=== PATIENT | male | born 1945 | race Caucasian/White ===

== ENCOUNTER 2017-11-18 07:45 | Emergency (ER) | payer MEDICARE ==
[~2017-11-18] VITALS: Ht 172.7 cm; Wt 106.8 kg
[2017-11-18] MEDS ORDERED: ACET-3068 PO (09:28)
[2017-11-18 09:37] VITALS: BP 124/72
== END 2017-11-18 09:40 | disposition home or self-care (01) ==
LOC: ER 07:46
DX: S89.91XA Unspecified injury of right lower leg, initial encounter (principal); M70.51 Other bursitis of knee, right knee; I10 Essential (primary) hypertension; E11.9 Type 2 diabetes mellitus without complications; Z98.890 Other specified postprocedural states; W19.XXXA Unspecified fall, initial encounter; Y93.89 Activity, other specified; Y92.89 Other specified places as the place of occurrence of the external cause; Y99.9 Unspecified external cause status
CPT/HCPCS: 73564; 99284; A6449

== ENCOUNTER 2018-05-23 04:34 | Inpatient (IN) | payer MEDICARE | END 2018-05-28 17:05 | disposition home or self-care (01) | LOC: ER 04:34 → ED HOLD 09:33 → PCU 3S 17:36 | DX: K52.9 Noninfective gastroenteritis and colitis, unspecified (principal); N17.9 Acute kidney failure, unspecified; N40.0 Benign prostatic hyperplasia without lower urinary tract symptoms; E11.42 Type 2 diabetes mellitus with diabetic polyneuropathy; N20.0 Calculus of kidney ==

== ENCOUNTER 2021-09-23 09:07 | Inpatient (IN) | payer MEDICARE ==
[~2021-09-23] VITALS: Ht 172.7 cm; Wt 102.4 kg
[~2021-09-23 09:07] MED LIST: ASCO500T20 PO; ATOR40TA PO; CHOL50004 PO; COL100C PO; INSU100C10 SQ; INSU100I31; LOP25T PO; LOSA100T57 PO; LYR75C PO; MAGN400O6 PO; NOR5T PO; PANT40TA54 PO; hyDRALAzine tablet PO
[2021-09-23 10:47] LABS: BASOPHILS # (AUTO) 0.1 X10'3 (0-0.2); BASOPHILS % (AUTO) 0.6 % (0-1); EOSINOPHILS % (AUTO) 0 % (0-6); HEMATOCRIT 49.4 % (42.0-52.0); HEMOGLOBIN 17.1 g/dl (14.0-17.9); LYMPHOCYTES # (AUTO) 0.6 X10'3 (1.1-4.8); LYMPHOCYTES % (AUTO) 3.8 % (21-51); MEAN CORPUSCULAR HEMOGLOBIN 31.6 PG (27.0-31.0); MEAN CORPUSCULAR HGB CONC 34.6 g/dL (33.0-36.5); MEAN CORPUSCULAR VOLUME 91.5 FL (78-98); MEAN PLATELET VOLUME 7.6 FL (7.4-10.4); MONOCYTES # (AUTO) 0.7 X10'3 (0-0.9); MONOCYTES % (AUTO) 3.9 % (2-12); NEUTROPHILS # (AUTO) 15.5 X10'3 (1.8-7.7); NEUTROPHILS % (AUTO) 91.7 % (42-75); PLATELET COUNT 257 X10'3 (140-440); WHITE BLOOD COUNT 16.9 X10'3 (4.5-11.0)
[2021-09-23 11:00] LABS: ALANINE AMINOTRANSFERASE 15 U/L (12-78); ALBUMIN 3.8 G/DL (3.4-5.0); ALKALINE PHOSPHATASE 165 IU/L (46-116); ANION GAP 13 (8-16); ASPARTATE AMINO TRANSFERASE 11 U/L (10-37); BILIRUBIN,TOTAL 1.6 MG/DL (0.1-1.0); BLOOD UREA NITROGEN 11 MG/DL (7-18); BUN/CREATININE RATIO 8.3 (5.4-32.0); CALCIUM 9.9 MG/DL (8.5-10.1); CHLORIDE 101 MMOL/L (99-107); CREATININE 1.32 MG/DL (0.60-1.10); GLUCOSE 331 MG/DL (70-104); POTASSIUM 4.5 MMOL/L (3.5-5.1); SODIUM 139 MMOL/L (135-145); TOTAL PROTEIN 7.7 G/DL (6.4-8.2); eGFR 53 ML/MIN
[2021-09-23] MEDS ORDERED: iohexol 350MG/ML 100ml bottle IV ONE (16:01)
[2021-09-23] MEDS ORDERED: acetaminophen 325mg tablet PO PRN ×2 (16:15)
[2021-09-23] MEDS ORDERED: morphine 2 MG/ML inj. syringe IV PRN (16:15)
[2021-09-23] MEDS ORDERED: regadenoson 0.4mg/5ml syringe IV PRN (16:15)
[2021-09-23] MEDS ORDERED: magnesium hydroxide 30ml (MOM) UD suspension PO PRN (16:15)
[2021-09-23] MEDS ORDERED: metoprolol tartrate 1mg/ml inj IV PRN (16:15)
[2021-09-23] MEDS ORDERED: POTASSIUM BICARB 20meq eff tab 20 MEQ TABLET.EFF PO PRN (16:15)
[2021-09-23] MEDS ORDERED: potassium CL 10mEq/100ml bag 100 ML IV PRN (16:15)
[2021-09-23] MEDS ORDERED: dextrose 50%-water 50ml dispensing syringe IV PRN ×2 (16:15)
[2021-09-23] MEDS ORDERED: aminophylline 250mg/10ml inj. IV PRN (16:15)
[2021-09-23] MEDS ORDERED: magnesium 2GM in 50ml NS 50 ML IV PRN (16:15)
[2021-09-23] MEDS ORDERED: glucagon, human recombinant 1mg kit SUBCUT PRN (16:15)
[2021-09-23] MEDS ORDERED: magnesium 4gm in 100ml NS 100 ML IV PRN (16:15)
[2021-09-23] MEDS ORDERED: DEXTROSE 15 GM of carb/4 tabs (each vial/BOTTLE has 4 tablets) PO PRN ×2 (16:15)
[2021-09-23] MEDS ORDERED: MESSAGE TO PHARMACY PO ONE (16:15)
[2021-09-23] MEDS ORDERED: mag hydrox/Alum hydrox/simeth 30ml oral suspension PO PRN (16:15)
[2021-09-23] MEDS ORDERED: magnesium Cl slow-release 64mg tablet PO PRN (16:15)
[2021-09-23] MEDS ORDERED: nitroGLYCERIN 0.4mg SUBLingual tab SL PRN (16:15)
[2021-09-23 16:36] LABS: MAGNESIUM 2.1 MG/DL (1.5-2.4)
[2021-09-23 16:41] LABS: HEMOGLOBIN A1C 9.7 % (4.5-6.2)
[2021-09-23 17:27] LABS: CLARITY,URINE CLEAR (Clear); COLOR,URINE YELLOW (Yellow); GLUCOSE, URINE >=1000 mg/dl (Neg); KETONES,URINE 15 mg/dl (Neg); LEUKOCYTE ESTERASE ,URINE NEGATIVE (Neg); NITRITES, URINE NEGATIVE (Neg); OCCULT BLOOD,URINE TRACE-INTACT (Neg); PH,URINE 5.5 (4.8-8.0); PROTEIN,URINE TRACE mg/dl (Neg); UROBILINOGEN,URINE 0.2 E.U/dL (0.2-1.0)
[2021-09-23 17:34] LABS: UA COLLECTION TYPE CLN CATCH MIDSTREAM
[2021-09-23 17:36] LABS: BACTERIA,URINE NONE SEEN /HPF (Neg); MUCUS STRANDS NONE SEEN /LPF (Neg); RBC,URINE NONE SEEN /HPF (0-2); SQUAMOUS EPITHELIAL CELL,UR FEW /LPF (FEW); WBC,URINE NONE SEEN /HPF (0-4)
[2021-09-23] MEDS: furosemide 10 MG/1 ML 10ml inj IV SCH (19:49)
[2021-09-23] MEDS: K and/or MAG REPLACEMENT MC SCH (20:00)
[2021-09-23] MEDS: docusate sod 100mg capsule PO SCH (20:59)
[2021-09-23] MEDS: insulin glargine (Lantus) pen - multi-dose SQ SCH (21:04)
[2021-09-23] MEDS: insulin Lispro (HumaLOG) vial - multi-dose SQ SCH (21:05)
[2021-09-23 23:50] VITALS: BP 137/67
[2021-09-24] VITALS (15 sets, daily range): BP systolic 118–165; BP diastolic 45–83
[2021-09-24] MEDS: HYDROcodone/acetaminophen 5mg/325mg tablet PO PRN (04:16)
--- NOTE | 2021-09-24 06:10 | NUR ---
pt sat on a chair all through half of the shift.Said his chest pain worsen when he is in lying position.
[2021-09-24 07:21] LABS: BASOPHILS # (AUTO) 0.1 X10'3 (0-0.2); BASOPHILS % (AUTO) 0.3 % (0-1); EOSINOPHILS % (AUTO) 0 % (0-6); HEMATOCRIT 46.6 % (42.0-52.0); HEMOGLOBIN 16.2 g/dl (14.0-17.9); LYMPHOCYTES # (AUTO) 0.7 X10'3 (1.1-4.8); LYMPHOCYTES % (AUTO) 4.1 % (21-51); MEAN CORPUSCULAR HEMOGLOBIN 31.6 PG (27.0-31.0); MEAN CORPUSCULAR HGB CONC 34.7 g/dL (33.0-36.5); MEAN PLATELET VOLUME 7.7 FL (7.4-10.4); MONOCYTES # (AUTO) 1.3 X10'3 (0-0.9); MONOCYTES % (AUTO) 7.4 % (2-12); NEUTROPHILS # (AUTO) 15.6 X10'3 (1.8-7.7); NEUTROPHILS % (AUTO) 88.2 % (42-75); PLATELET COUNT 254 X10'3 (140-440); RED BLOOD COUNT 5.12 X10'6 (4.70-6.10); RED CELL DISTRIBUTION WIDTH 12.7 % (11.5-14.5); WHITE BLOOD COUNT 17.7 X10'3 (4.5-11.0)
[2021-09-24 07:31] LABS: ALANINE AMINOTRANSFERASE 11 U/L (12-78); ALBUMIN 3.3 G/DL (3.4-5.0); ALBUMIN/GLOBULIN RATIO 0.8 (1.1-1.5); ALKALINE PHOSPHATASE 127 IU/L (46-116); ANION GAP 15 (8-16); ASPARTATE AMINO TRANSFERASE 10 U/L (10-37); BILIRUBIN,TOTAL 2.2 MG/DL (0.1-1.0); BLOOD UREA NITROGEN 19 MG/DL (7-18); BUN/CREATININE RATIO 13.5 (5.4-32.0); CALCIUM 9.3 MG/DL (8.5-10.1); CHLORIDE 102 MMOL/L (99-107); CHOL/HDL RATIO 2.4 (0.00-4.99); CHOLESTEROL 136 MG/DL (0-200); CREATININE 1.41 MG/DL (0.60-1.10); GLUCOSE 299 MG/DL (70-104); HDL CHOLESTEROL 56 MG/DL (35-60); LDL CHOLESTEROL 54 MG/DL (50-100); MAGNESIUM 2.4 MG/DL (1.5-2.4); POTASSIUM 3.5 MMOL/L (3.5-5.1); SODIUM 139 MMOL/L (135-145); TOTAL CARBON DIOXIDE 21.7 MMOL/L (24-32); TOTAL PROTEIN 7.2 G/DL (6.4-8.2); TRIGLYCERIDES 164 MG/DL (20-135); eGFR 49 ML/MIN
[2021-09-24] MEDS: docusate sod 100mg capsule PO SCH ×2 (08:00→20:31)
[2021-09-24] MEDS: furosemide 10 MG/1 ML 10ml inj IV SCH (08:10)
[2021-09-24] MEDS: enoxaparin 40mg/0.4ml syringe SUBCUT SCH (08:11)
[2021-09-24] MEDS: K and/or MAG REPLACEMENT MC SCH ×2 (08:26→20:00)
[2021-09-24] MEDS ORDERED: cefTRIAXone 1g/NS 100ml IVPB 100 ML IV SCH (08:45)
[2021-09-24] MEDS: insulin Lispro (HumaLOG) vial - multi-dose SQ SCH ×3 (08:50→22:36)
--- NOTE | 2021-09-24 10:10 | NUR ---
Diabetes consult: Noted pt w/ hx of DM A1c 9.7, pt currently out for stress test per RN. Will attempt DM ed again at later time Addendum: 09/24/21 at [address] Amended: Links added.
[2021-09-24] MEDS ORDERED: aminophylline 500mg/20ml vial ONE (10:43)
--- NOTE | 2021-09-24 14:36 | NUR ---
PAGER ID: [phone] MESSAGE: GERMAIN [email or web address], THE [facility]AMA[facility] REPORT IS AVAILABLE ON 3014B, THX.
[2021-09-24] MEDS: piperacillin/tazo 3.375gm/50ml 50 ML IV SCH (16:07)
[2021-09-24] MEDS ORDERED: SINCALIDE IV ONE (19:30)
[2021-09-24] MEDS ORDERED: NORMAL SALINE IV ONE (19:30)
[2021-09-24] MEDS: insulin glargine (Lantus) pen - multi-dose SQ SCH (22:38)
[2021-09-25 02:00] VITALS: BP 132/65
[2021-09-25] MEDS: piperacillin/tazo 3.375gm/50ml 50 ML IV SCH ×3 (03:00→15:49)
[2021-09-25 06:00] VITALS: BP 157/82
--- NOTE | 2021-09-25 06:39 | NUR ---
Patient in room PCU 3014. I have received report from TOBIAS Rivera and had the opportunity to ask questions and assume patient care.
[2021-09-25 06:42] LABS: BASOPHILS % (AUTO) 0.3 % (0-1); EOSINOPHILS % (AUTO) 0.1 % (0-6); HEMATOCRIT 43.6 % (42.0-52.0); HEMOGLOBIN 15.1 g/dl (14.0-17.9); LYMPHOCYTES # (AUTO) 0.7 X10'3 (1.1-4.8); LYMPHOCYTES % (AUTO) 5.1 % (21-51); MEAN CORPUSCULAR HEMOGLOBIN 31.8 PG (27.0-31.0); MEAN CORPUSCULAR HGB CONC 34.7 g/dL (33.0-36.5); MEAN CORPUSCULAR VOLUME 91.7 FL (78-98); MEAN PLATELET VOLUME 7.8 FL (7.4-10.4); MONOCYTES # (AUTO) 0.8 X10'3 (0-0.9); NEUTROPHILS % (AUTO) 88.5 % (42-75); PLATELET COUNT 223 X10'3 (140-440); RED BLOOD COUNT 4.76 X10'6 (4.70-6.10); RED CELL DISTRIBUTION WIDTH 12.8 % (11.5-14.5); WHITE BLOOD COUNT 13.6 X10'3 (4.5-11.0)
[2021-09-25 07:06] LABS: ALANINE AMINOTRANSFERASE 120 U/L (12-78); ALBUMIN 2.6 G/DL (3.4-5.0); ALBUMIN/GLOBULIN RATIO 0.7 (1.1-1.5); ALKALINE PHOSPHATASE 272 IU/L (46-116); ANION GAP 16 (8-16); ASPARTATE AMINO TRANSFERASE 429 U/L (10-37); BILIRUBIN,TOTAL 3.6 MG/DL (0.1-1.0); BLOOD UREA NITROGEN 29 MG/DL (7-18); BUN/CREATININE RATIO 18.2 (5.4-32.0); CALCIUM 8.9 MG/DL (8.5-10.1); CHLORIDE 99 MMOL/L (99-107); CREATININE 1.59 MG/DL (0.60-1.10); GLUCOSE 223 MG/DL (70-104); MAGNESIUM 2.2 MG/DL (1.5-2.4); SODIUM 135 MMOL/L (135-145); TOTAL PROTEIN 6.4 G/DL (6.4-8.2); eGFR 42 ML/MIN
[2021-09-25 07:24] LABS: POTASSIUM 2.9 MMOL/L (3.5-5.1)
[2021-09-25] MEDS: K and/or MAG REPLACEMENT MC SCH ×2 (08:00→20:00)
[2021-09-25] MEDS: furosemide 10 MG/1 ML 10ml inj IV SCH (08:28)
[2021-09-25] MEDS: enoxaparin 40mg/0.4ml syringe SUBCUT SCH (08:29)
[2021-09-25] MEDS: docusate sod 100mg capsule PO SCH ×2 (08:29→20:00)
[2021-09-25] MEDS: insulin Lispro (HumaLOG) vial - multi-dose SQ SCH ×2 (08:39→14:01)
[2021-09-25] MEDS ORDERED: POTASSIUM BICARB 20meq eff tab 20 MEQ TABLET.EFF PO PRN ×2 (09:20)
[2021-09-25] MEDS ORDERED: potassium CL 10mEq/100ml bag 100 ML IV PRN (09:20)
[2021-09-25] MEDS ORDERED: magnesium 4gm in 100ml NS 100 ML IV PRN (09:20)
[2021-09-25] MEDS ORDERED: magnesium Cl slow-release 64mg tablet PO PRN (09:20)
[2021-09-25] MEDS ORDERED: magnesium 2GM in 50ml NS 50 ML IV PRN (09:20)
[2021-09-25] MEDS: POTASSIUM BICARB 20meq eff tab 20 MEQ TABLET.EFF PO PRN ×3 (10:52→23:09)
[2021-09-25 11:00] VITALS: BP 127/65
[2021-09-25] MEDS: ondansetron/PF 4mg/2ml inj IV PRN (17:48)
[2021-09-25 18:00] VITALS: BP 167/88
--- NOTE | 2021-09-25 18:17 | NUR ---
Problems reprioritized. Patient report given, questions answered & plan of care reviewed with TOBIAS Gallo.
--- NOTE | 2021-09-25 18:33 | NUR ---
Patient in room PCU 3014. I have received report from TOBIAS Kraft and had the opportunity to ask questions and assume patient care.
[2021-09-25] MEDS ORDERED: K and/or MAG REPLACEMENT MC SCH (20:00)
[2021-09-25 22:00] VITALS: BP 170/75
[2021-09-25] MEDS: insulin glargine (Lantus) pen - multi-dose SQ SCH (23:00)
[2021-09-26] MEDS: piperacillin/tazo 3.375gm/50ml 50 ML IV SCH ×4 (00:16→23:48)
[2021-09-26] MEDS: ondansetron/PF 4mg/2ml inj IV PRN (00:32)
[2021-09-26 02:00] VITALS: BP 173/93
[2021-09-26] MEDS ORDERED: hydrALAZINE 20mg/ml inj. IV PRN (04:00)
--- NOTE | 2021-09-26 04:00 | NUR ---
pT bp ELEVATED 173/[address] GARCIA AND HE ORDERED HYDRALAZINE 5 MG IV Q6 PRN
[2021-09-26 04:10] VITALS: BP 176/91
[2021-09-26 06:00] VITALS: BP 173/79
--- NOTE | 2021-09-26 06:25 | NUR ---
Problems reprioritized. Patient report given, questions answered & plan of care reviewed with TOBIAS Harvey.
[2021-09-26 07:38] LABS: BASOPHILS % (AUTO) 0.2 % (0-1); EOSINOPHILS % (AUTO) 0 % (0-6); HEMATOCRIT 45.5 % (42.0-52.0); HEMOGLOBIN 15.6 g/dl (14.0-17.9); LYMPHOCYTES # (AUTO) 0.7 X10'3 (1.1-4.8); LYMPHOCYTES % (AUTO) 6.1 % (21-51); MEAN CORPUSCULAR HEMOGLOBIN 31.5 PG (27.0-31.0); MEAN CORPUSCULAR HGB CONC 34.2 g/dL (33.0-36.5); MEAN CORPUSCULAR VOLUME 92.2 FL (78-98); MEAN PLATELET VOLUME 7.9 FL (7.4-10.4); MONOCYTES # (AUTO) 0.8 X10'3 (0-0.9); MONOCYTES % (AUTO) 6.6 % (2-12); NEUTROPHILS % (AUTO) 87.1 % (42-75); PLATELET COUNT 241 X10'3 (140-440); RED BLOOD COUNT 4.94 X10'6 (4.70-6.10); RED CELL DISTRIBUTION WIDTH 12.5 % (11.5-14.5); WHITE BLOOD COUNT 11.4 X10'3 (4.5-11.0)
[2021-09-26] MEDS: K and/or MAG REPLACEMENT MC SCH ×2 (08:00→19:21)
[2021-09-26] MEDS: enoxaparin 40mg/0.4ml syringe SUBCUT SCH (08:00)
[2021-09-26 08:24] LABS: ALANINE AMINOTRANSFERASE 97 U/L (12-78); ALBUMIN 2.4 G/DL (3.4-5.0); ALBUMIN/GLOBULIN RATIO 0.6 (1.1-1.5); ALKALINE PHOSPHATASE 240 IU/L (46-116); ANION GAP 19 (8-16); ASPARTATE AMINO TRANSFERASE 66 U/L (10-37); BILIRUBIN,TOTAL 1.2 MG/DL (0.1-1.0); BLOOD UREA NITROGEN 32 MG/DL (7-18); BUN/CREATININE RATIO 22.9 (5.4-32.0); CALCIUM 8.8 MG/DL (8.5-10.1); CHLORIDE 99 MMOL/L (99-107); GLUCOSE 185 MG/DL (70-104); MAGNESIUM 2.2 MG/DL (1.5-2.4); POTASSIUM 3.7 MMOL/L (3.5-5.1); SODIUM 137 MMOL/L (135-145); TOTAL CARBON DIOXIDE 18.6 MMOL/L (24-32); TOTAL PROTEIN 6.6 G/DL (6.4-8.2); eGFR 49 ML/MIN
[2021-09-26] MEDS ORDERED: NORMAL SALINE IV ONE (09:00)
[2021-09-26] MEDS ORDERED: SINCALIDE IV ONE (09:00)
[2021-09-26] MEDS: amLODIPine 5mg tablet PO SCH (09:30)
[2021-09-26] MEDS: docusate sod 100mg capsule PO SCH ×2 (09:30→19:26)
[2021-09-26] MEDS: furosemide 10 MG/1 ML 10ml inj IV SCH (09:30)
--- NOTE | 2021-09-26 09:45 | NUR ---
f/u: Attempted to provide DM ed though pt was on the phone and diet not seem interested in receiving education. Written DM ed w/ RD contact info placed in pt chart. Addendum: 09/26/21 at [address] Amended: Links added.
[2021-09-26 11:00] VITALS: BP_SYST 122; BP_SYST 153; BP_DIAS 66; BP_DIAS 78
[2021-09-26] MEDS: morphine 2 MG/ML inj. syringe IV PRN (14:20)
[2021-09-26] MEDS: HYDROcodone/acetaminophen 5mg/325mg tablet PO PRN (16:35)
[2021-09-26] MEDS: insulin Lispro (HumaLOG) vial - multi-dose SQ SCH ×3 (17:30→21:07)
[2021-09-26 18:00] VITALS: BP 138/66
[2021-09-26] MEDS: insulin glargine (Lantus) pen - multi-dose SQ SCH (21:06)
[2021-09-26 22:00] VITALS: BP 139/75
[2021-09-27 02:00] VITALS: BP 155/80
[2021-09-27 06:00] VITALS: BP 116/63
[2021-09-27 06:56] LABS: BASOPHILS # (AUTO) 0.1 X10'3 (0-0.2); BASOPHILS % (AUTO) 0.4 % (0-1); EOSINOPHILS # (AUTO) 0.1 X10'3 (0-0.9); EOSINOPHILS % (AUTO) 0.9 % (0-6); HEMATOCRIT 45.9 % (42.0-52.0); HEMOGLOBIN 15.6 g/dl (14.0-17.9); LYMPHOCYTES # (AUTO) 0.9 X10'3 (1.1-4.8); LYMPHOCYTES % (AUTO) 7.1 % (21-51); MEAN CORPUSCULAR HEMOGLOBIN 31.2 PG (27.0-31.0); MEAN CORPUSCULAR VOLUME 91.8 FL (78-98); MEAN PLATELET VOLUME 7.5 FL (7.4-10.4); MONOCYTES # (AUTO) 1.1 X10'3 (0-0.9); NEUTROPHILS # (AUTO) 9.9 X10'3 (1.8-7.7); NEUTROPHILS % (AUTO) 82.6 % (42-75); PLATELET COUNT 271 X10'3 (140-440); RED CELL DISTRIBUTION WIDTH 12.7 % (11.5-14.5)
[2021-09-27 07:10] LABS: ANION GAP 8 (8-16); CHLORIDE 101 MMOL/L (99-107); GLUCOSE 118 MG/DL (70-104); POTASSIUM 3.5 MMOL/L (3.5-5.1); SODIUM 138 MMOL/L (135-145); TOTAL CARBON DIOXIDE 29.3 MMOL/L (24-32)
[2021-09-27 07:11] LABS: ALANINE AMINOTRANSFERASE 58 U/L (12-78); ALBUMIN 2.3 G/DL (3.4-5.0); ALBUMIN/GLOBULIN RATIO 0.6 (1.1-1.5); ALKALINE PHOSPHATASE 193 IU/L (46-116); ASPARTATE AMINO TRANSFERASE 24 U/L (10-37); BILIRUBIN,TOTAL 0.9 MG/DL (0.1-1.0); BLOOD UREA NITROGEN 31 MG/DL (7-18); BUN/CREATININE RATIO 20.4 (5.4-32.0); CALCIUM 8.8 MG/DL (8.5-10.1); CREATININE 1.52 MG/DL (0.60-1.10); MAGNESIUM 2.3 MG/DL (1.5-2.4); TOTAL PROTEIN 6.2 G/DL (6.4-8.2); eGFR 45 ML/MIN
[2021-09-27] MEDS: furosemide 10 MG/1 ML 10ml inj IV SCH (07:23)
[2021-09-27] MEDS: amLODIPine 5mg tablet PO SCH (07:23)
[2021-09-27] MEDS: piperacillin/tazo 3.375gm/50ml 50 ML IV SCH ×3 (07:23→23:23)
[2021-09-27] MEDS: docusate sod 100mg capsule PO SCH ×2 (07:23→20:00)
[2021-09-27] MEDS: enoxaparin 40mg/0.4ml syringe SUBCUT SCH (07:24)
[2021-09-27] MEDS: morphine 2 MG/ML inj. syringe IV PRN (07:32)
[2021-09-27] MEDS: K and/or MAG REPLACEMENT MC SCH ×2 (08:00→20:00)
[2021-09-27] MEDS: insulin Lispro (HumaLOG) vial - multi-dose SQ SCH ×3 (10:35→19:16)
[2021-09-27 11:00] VITALS: BP 124/70
[2021-09-27] MEDS: HYDROcodone/acetaminophen 5mg/325mg tablet PO PRN ×2 (11:57→23:23)
[2021-09-27 15:00] VITALS: BP 126/70
[2021-09-27 18:00] VITALS: BP 105/67
[2021-09-27] MEDS: insulin glargine (Lantus) pen - multi-dose SQ SCH (21:39)
[2021-09-27 22:00] VITALS: BP 138/74
[2021-09-28] VITALS (12 sets, daily range): BP systolic 115–163; BP diastolic 56–81
[2021-09-28] MEDS: enoxaparin 40mg/0.4ml syringe SUBCUT SCH (06:46)
[2021-09-28 07:45] LABS: BASOPHILS % (AUTO) 0.2 % (0-1); EOSINOPHILS # (AUTO) 0.1 X10'3 (0-0.9); EOSINOPHILS % (AUTO) 0.9 % (0-6); HEMATOCRIT 45.3 % (42.0-52.0); HEMOGLOBIN 15.6 g/dl (14.0-17.9); LYMPHOCYTES # (AUTO) 0.9 X10'3 (1.1-4.8); LYMPHOCYTES % (AUTO) 7.4 % (21-51); MEAN CORPUSCULAR HEMOGLOBIN 31.5 PG (27.0-31.0); MEAN CORPUSCULAR HGB CONC 34.3 g/dL (33.0-36.5); MEAN CORPUSCULAR VOLUME 91.8 FL (78-98); MEAN PLATELET VOLUME 7.6 FL (7.4-10.4); MONOCYTES # (AUTO) 0.8 X10'3 (0-0.9); NEUTROPHILS # (AUTO) 9.9 X10'3 (1.8-7.7); NEUTROPHILS % (AUTO) 84.5 % (42-75); PLATELET COUNT 280 X10'3 (140-440); RED BLOOD COUNT 4.94 X10'6 (4.70-6.10); RED CELL DISTRIBUTION WIDTH 12.5 % (11.5-14.5); WHITE BLOOD COUNT 11.8 X10'3 (4.5-11.0)
[2021-09-28] MEDS: piperacillin/tazo 3.375gm/50ml 50 ML IV SCH ×2 (07:55→15:44)
[2021-09-28] MEDS: amLODIPine 5mg tablet PO SCH (07:55)
[2021-09-28] MEDS: docusate sod 100mg capsule PO SCH ×2 (07:55→21:03)
[2021-09-28 07:58] LABS: ALANINE AMINOTRANSFERASE 41 U/L (12-78); ALBUMIN 2.3 G/DL (3.4-5.0); ALBUMIN/GLOBULIN RATIO 0.6 (1.1-1.5); ALKALINE PHOSPHATASE 167 IU/L (46-116); ANION GAP 11 (8-16); ASPARTATE AMINO TRANSFERASE 23 U/L (10-37); BILIRUBIN,TOTAL 0.9 MG/DL (0.1-1.0); BLOOD UREA NITROGEN 29 MG/DL (7-18); BUN/CREATININE RATIO 20.7 (5.4-32.0); CALCIUM 8.5 MG/DL (8.5-10.1); CHLORIDE 99 MMOL/L (99-107); GLUCOSE 132 MG/DL (70-104); MAGNESIUM 2.1 MG/DL (1.5-2.4); SODIUM 136 MMOL/L (135-145); TOTAL CARBON DIOXIDE 26.5 MMOL/L (24-32); TOTAL PROTEIN 6.3 G/DL (6.4-8.2); eGFR 49 ML/MIN
[2021-09-28] MEDS: insulin Lispro (HumaLOG) vial - multi-dose SQ SCH ×4 (08:02→21:22)
[2021-09-28] MEDS: K and/or MAG REPLACEMENT MC SCH ×2 (08:07→20:35)
[2021-09-28] MEDS: furosemide 10 MG/1 ML 10ml inj IV SCH (08:10)
--- NOTE | 2021-09-28 08:19 | NUR ---
PAGED DR MIN RE: PAGER ID: [phone] MESSAGE: CARL. Ladan HOOVER 3.0. NEED PROTOCOL ORDER. OSITO [id number] TELE
[2021-09-28] MEDS ORDERED: magnesium Cl slow-release 64mg tablet PO PRN (08:25)
[2021-09-28] MEDS ORDERED: magnesium 4gm in 100ml NS 100 ML IV PRN (08:25)
[2021-09-28] MEDS ORDERED: potassium CL 10mEq/100ml bag 100 ML IV PRN (08:25)
[2021-09-28] MEDS ORDERED: LIDOcaine 1%/PF 5ML 10 MG/ML VIAL ONE (09:14)
--- NOTE | 2021-09-28 09:55 | NUR ---
PT TRANSFERRED OFF THE FLOOR TO IR
--- NOTE | 2021-09-28 09:58 | NUR ---
Initial: Pt presented with c/o CP. Pt with c/o abdominal pain and constipation. Per MD note HIDA shows acute cholecystitis, pending cholecystostomy today. Pt with an active clear liquid diet order however NPO today per EMR. Prior to clear liquid diet pt was on a CHO controlled diet and eating poorly with average PO intake less than 25% throughout LOS. Pt receiving routine bowel care with additional PRN bowel care available, to receive a fleets enema per MD note. No appropriate nutrition intervention at this time in view of current diet order. Will continue to follow closely. Recommendations: 1) Advance to CHO controlled diet as medically indicated 2) Monitor need for ONS with diet advancement 3) Routine bowel care; utilize PRN bowel care given constipation 4) Daily scaled weights per rx Addendum: 09/28/21 at [address] Amended: Links added.
[2021-09-28] MEDS ORDERED: fentaNYL/PF 50MCG/1 ML 2ML syringe ONE (10:01)
[2021-09-28] MEDS ORDERED: midazolam 1 mg/ML 2ml injection ONE (10:10)
[2021-09-28] MEDS: POTASSIUM BICARB 20meq eff tab 20 MEQ TABLET.EFF PO PRN ×2 (11:33→21:04)
[2021-09-28] MEDS: morphine 2 MG/ML inj. syringe IV PRN ×2 (11:59→21:04)
[2021-09-28] MEDS: HYDROcodone/acetaminophen 5mg/325mg tablet PO PRN (13:58)
[2021-09-28] MEDS ORDERED: METO-395 PO (17:59)
[2021-09-28] MEDS ORDERED: EMPA10TA PO (17:59)
[2021-09-28] MEDS ORDERED: ROSU10TA28 PO (17:59)
[2021-09-28] MEDS ORDERED: GABA-530 PO (17:59)
[2021-09-28] MEDS ORDERED: OMEG-79 PO (17:59)
[2021-09-28] MEDS ORDERED: IRBE75TA8 PO (17:59)
[2021-09-28] MEDS ORDERED: CHOL500050 PO (17:59)
[2021-09-28] MEDS ORDERED: CYAN100T47 PO (18:00)
--- NOTE | 2021-09-28 18:17 | NUR ---
Problems reprioritized. Patient report given, questions answered & plan of care reviewed with JAC COLLADO.
--- NOTE | 2021-09-28 18:21 | NUR ---
Patient in room PCU 3014B. I have received report from Mellissa COLLADO and had the opportunity to ask questions and assume patient care.
[2021-09-28] MEDS: insulin glargine (Lantus) pen - multi-dose SQ SCH (21:20)
[2021-09-29] MEDS: piperacillin/tazo 3.375gm/50ml 50 ML IV SCH ×3 (00:15→17:20)
[2021-09-29 02:00] VITALS: BP_SYST 140; BP_SYST 147; BP_DIAS 70; BP_DIAS 76
[2021-09-29 06:00] VITALS: BP 145/74
--- NOTE | 2021-09-29 06:23 | NUR ---
Patient in room PCU 3014a. I have received report from Ivy COLLADO and had the opportunity to ask questions and assume patient care.
--- NOTE | 2021-09-29 06:30 | NUR ---
Patient in room PCU 3014. I have received report from rupert COLLADO and had the opportunity to ask questions and assume patient care.
[2021-09-29] MEDS: K and/or MAG REPLACEMENT MC SCH ×2 (08:00→20:00)
[2021-09-29] MEDS: amLODIPine 5mg tablet PO SCH (08:05)
[2021-09-29] MEDS: enoxaparin 40mg/0.4ml syringe SUBCUT SCH (08:05)
[2021-09-29] MEDS: docusate sod 100mg capsule PO SCH ×2 (08:06→20:24)
[2021-09-29] MEDS: furosemide 10 MG/1 ML 10ml inj IV SCH (08:07)
[2021-09-29 08:31] LABS: MAGNESIUM 2.3 MG/DL (1.5-2.4); POTASSIUM 3.2 MMOL/L (3.5-5.1)
[2021-09-29] MEDS: insulin Lispro (HumaLOG) vial - multi-dose SQ SCH ×3 (09:28→20:27)
[2021-09-29 11:00] VITALS: BP 136/70
[2021-09-29] MEDS: POTASSIUM BICARB 20meq eff tab 20 MEQ TABLET.EFF PO PRN ×2 (11:35→17:36)
[2021-09-29] MEDS: gabapentin 100mg capsule PO SCH ×2 (13:27→20:25)
[2021-09-29] MEDS: HYDROcodone/acetaminophen 5mg/325mg tablet PO PRN (13:38)
[2021-09-29 15:00] VITALS: BP 131/71
--- NOTE | 2021-09-29 17:44 | NUR ---
patient seen by DR Pema reynoso enema ordered and given with small result formed soft stool. Blood sugar 60 at 1700 hrs, glucose given will recheck.
--- NOTE | 2021-09-29 18:16 | NUR ---
Bs 67 patient is eating . report given to rupert COLLADO
--- NOTE | 2021-09-29 18:18 | NUR ---
Patient in room PCU 3014B. I have received report from Ivy COLLADO and had the opportunity to ask questions and assume patient care.
[2021-09-29 18:30] VITALS: BP 180/81
[2021-09-29] MEDS: losartan 25mg tablet PO SCH (20:25)
[2021-09-29] MEDS ORDERED: atorvastatin 20mg tablet PO SCH (21:00)
[2021-09-29] MEDS: insulin glargine (Lantus) pen - multi-dose SQ SCH (21:48)
[2021-09-29] MEDS: morphine 2 MG/ML inj. syringe IV PRN (21:52)
[2021-09-29 22:00] VITALS: BP 129/81
[2021-09-30] MEDS: piperacillin/tazo 3.375gm/50ml 50 ML IV SCH ×2 (00:50→07:20)
[2021-09-30 02:00] VITALS: BP 118/64
[2021-09-30 06:00] VITALS: BP 172/78
[2021-09-30] MEDS: docusate sod 100mg capsule PO SCH (07:18)
[2021-09-30] MEDS: amLODIPine 5mg tablet PO SCH (07:19)
[2021-09-30] MEDS: losartan 25mg tablet PO SCH (07:20)
[2021-09-30] MEDS: gabapentin 100mg capsule PO SCH ×2 (07:20→12:34)
[2021-09-30] MEDS: enoxaparin 40mg/0.4ml syringe SUBCUT SCH (07:20)
[2021-09-30] MEDS: morphine 2 MG/ML inj. syringe IV PRN (07:21)
[2021-09-30] MEDS: furosemide 10 MG/1 ML 10ml inj IV SCH (07:21)
[2021-09-30 07:32] LABS: BASOPHILS # (AUTO) 0.1 X10'3 (0-0.2); BASOPHILS % (AUTO) 0.7 % (0-1); EOSINOPHILS # (AUTO) 0.3 X10'3 (0-0.9); EOSINOPHILS % (AUTO) 4.1 % (0-6); HEMATOCRIT 43.9 % (42.0-52.0); LYMPHOCYTES # (AUTO) 1.1 X10'3 (1.1-4.8); LYMPHOCYTES % (AUTO) 13.3 % (21-51); MEAN CORPUSCULAR HEMOGLOBIN 31.4 PG (27.0-31.0); MEAN CORPUSCULAR VOLUME 92.3 FL (78-98); MEAN PLATELET VOLUME 7.5 FL (7.4-10.4); MONOCYTES # (AUTO) 0.6 X10'3 (0-0.9); MONOCYTES % (AUTO) 7.8 % (2-12); NEUTROPHILS # (AUTO) 6.1 X10'3 (1.8-7.7); NEUTROPHILS % (AUTO) 74.1 % (42-75); PLATELET COUNT 322 X10'3 (140-440); RED BLOOD COUNT 4.76 X10'6 (4.70-6.10); RED CELL DISTRIBUTION WIDTH 12.5 % (11.5-14.5); WHITE BLOOD COUNT 8.2 X10'3 (4.5-11.0)
[2021-09-30 07:43] LABS: ALANINE AMINOTRANSFERASE 24 U/L (12-78); ALBUMIN 2.3 G/DL (3.4-5.0); ALBUMIN/GLOBULIN RATIO 0.6 (1.1-1.5); ALKALINE PHOSPHATASE 132 IU/L (46-116); ANION GAP 10 (8-16); ASPARTATE AMINO TRANSFERASE 15 U/L (10-37); BILIRUBIN,TOTAL 0.6 MG/DL (0.1-1.0); BLOOD UREA NITROGEN 18 MG/DL (7-18); BUN/CREATININE RATIO 12.4 (5.4-32.0); CALCIUM 8.4 MG/DL (8.5-10.1); CHLORIDE 96 MMOL/L (99-107); CREATININE 1.45 MG/DL (0.60-1.10); GLUCOSE 108 MG/DL (70-104); PHOSPHORUS 3.9 MG/DL (2.3-4.5); POTASSIUM 3.2 MMOL/L (3.5-5.1); SODIUM 135 MMOL/L (135-145); TOTAL PROTEIN 6.1 G/DL (6.4-8.2); eGFR 47 ML/MIN
[2021-09-30] MEDS ORDERED: metoprolol succinate 25mg (24-HOUR) SR. Tablet PO SCH (08:00)
[2021-09-30] MEDS ORDERED: OMEGA-3/DHA/EPA/FISH OIL 1 EACH CAPSULE.DR PO SCH (08:00)
[2021-09-30] MEDS ORDERED: cholecalciferol (vitamin D3) 1,000 unit (25mcg) tablet PO SCH (08:00)
[2021-09-30] MEDS: K and/or MAG REPLACEMENT MC SCH (08:00)
[2021-09-30] MEDS: insulin Lispro (HumaLOG) vial - multi-dose SQ SCH (09:46)
[2021-09-30] MEDS ORDERED: LACT1CAP26 PO (10:52)
[2021-09-30] MEDS ORDERED: CIPR-202 PO (10:52)
[2021-09-30] MEDS ORDERED: HYDR-3965 PO (10:52)
[2021-09-30] MEDS ORDERED: NOR5T PO (10:52)
[2021-09-30] MEDS ORDERED: METR-159 PO (10:52)
[2021-09-30] MEDS ORDERED: METF-1203 PO (10:55)
[2021-09-30 11:00] VITALS: BP 145/74
--- NOTE | 2021-09-30 14:18 | NUR ---
DISCHARGE information provided, education on DAVEY drain maintenance provided.
== END 2021-09-30 14:55 | disposition home health service (06) | DRG 444 ==
LOC: ER 09:07 → ED HOLD 16:35 → EDBEDREQ 21:59 → PCU 3S 23:39
PROVIDERS: ADMIT Internal Medicine; ATTEND Internal Medicine
PROC: 4A02XM4 Measurement of Cardiac Total Activity, External Approach (ICD-10-PCS; 2021-09-23)
PROC: 3E033HZ Introduction of Radioactive Substance into Peripheral Vein, Percutaneous Approach (ICD-10-PCS; 2021-09-23)
PROC: BW251ZZ Computerized Tomography (CT Scan) of Chest, Abdomen and Pelvis using Low Osmolar Contrast (ICD-10-PCS; 2021-09-23)
PROC: CF1C1ZZ Planar Nuclear Medicine Imaging of Hepatobiliary System, All using Technetium 99m (Tc-99m) (ICD-10-PCS; 2021-09-26)
PROC: 0F9430Z Drainage of Gallbladder with Drainage Device, Percutaneous Approach (ICD-10-PCS; principal; 2021-09-28)
DX: K81.0 Acute cholecystitis (principal); I50.33 Acute on chronic diastolic (congestive) heart failure; I10 Essential (primary) hypertension; E11.9 Type 2 diabetes mellitus without complications; K42.9 Umbilical hernia without obstruction or gangrene; R00.1 Bradycardia, unspecified; E66.01 Morbid (severe) obesity due to excess calories; K59.00 Constipation, unspecified; D72.829 Elevated white blood cell count, unspecified; K44.9 Diaphragmatic hernia without obstruction or gangrene; K57.30 Diverticulosis of large intestine without perforation or abscess without bleeding; K40.20 Bilateral inguinal hernia, without obstruction or gangrene, not specified as recurrent; E87.6 Hypokalemia; E78.00 Pure hypercholesterolemia, unspecified; K76.89 Other specified diseases of liver; K82.8 Other specified diseases of gallbladder; Z87.891 Personal history of nicotine dependence; Z79.899 Other long term (current) drug therapy; Z79.4 Long term (current) use of insulin; Z68.34 Body mass index [BMI] 34.0-34.9, adult
CPT/HCPCS: 36415; 47490; 71045; 71275; 74177; 76700; 78227; 78452; 80053; 80061; 81001; 82948; 83036; 83735; 83880; 84100; 84132; 84484; 85025; 87070; 87077; 87081; 87186; 93005; 93017; 93306; 99152; 99153; 99285; A4421; A4620; A6258; A6449; A9500; A9537; G0378; J0280; J0360; J1650; J1815; J1940; J2250; J2270; J2405; J2543; J2785; J3010; J3490; Q9967

== ENCOUNTER 2021-11-21 15:35 | Inpatient (IN) | payer MEDICARE ==
[~2021-11-21] VITALS: Ht 172.7 cm; Wt 92.0 kg
[~2021-11-21 15:35] MED LIST changes: +AMLO2.5T2 PO; -ASCO500T20 PO; -ATOR40TA PO; -CHOL50004 PO; +CHOL500050; -COL100C PO; +EMPA10TA PO; -INSU100C10 SQ; -INSU100I31; +IRBE75TA8 PO; +LANTUS SQ; -LOP25T PO; -LOSA100T57 PO; -LYR75C PO; -MAGN400O6 PO; -NOR5T PO; -PANT40TA54 PO; +ROSU10TA28; +VITA-268 PO; -hyDRALAzine tablet PO
--- NOTE | 2021-11-21 15:47 | NUR ---
pt to CT
--- NOTE | 2021-11-21 16:10 | NUR ---
Dr Tracy at bedside
[2021-11-21 16:34] LABS: APTT 27 SECONDS (22-32); BASOPHILS % (AUTO) 0.3 % (0-1); EOSINOPHILS # (AUTO) 0.4 X10'3 (0-0.9); EOSINOPHILS % (AUTO) 7.6 % (0-6); HEMATOCRIT 43.3 % (42.0-52.0); HEMOGLOBIN 14.7 g/dl (14.0-17.9); LYMPHOCYTES # (AUTO) 1.2 X10'3 (1.1-4.8); LYMPHOCYTES % (AUTO) 20.3 % (21-51); MEAN CORPUSCULAR HEMOGLOBIN 31.3 PG (27.0-31.0); MEAN CORPUSCULAR HGB CONC 33.8 g/dL (33.0-36.5); MEAN CORPUSCULAR VOLUME 92.4 FL (78-98); MEAN PLATELET VOLUME 8.1 FL (7.4-10.4); MONOCYTES # (AUTO) 0.5 X10'3 (0-0.9); MONOCYTES % (AUTO) 8.8 % (2-12); NEUTROPHILS # (AUTO) 3.7 X10'3 (1.8-7.7); PLATELET COUNT 279 X10'3 (140-440); RED BLOOD COUNT 4.69 X10'6 (4.70-6.10); RED CELL DISTRIBUTION WIDTH 13.6 % (11.5-14.5); WHITE BLOOD COUNT 5.9 X10'3 (4.5-11.0)
[2021-11-21 16:38] LABS: ALANINE AMINOTRANSFERASE 21 U/L (12-78); ALBUMIN 3.3 G/DL (3.4-5.0); ALBUMIN/GLOBULIN RATIO 0.8 (1.1-1.5); ALKALINE PHOSPHATASE 121 IU/L (46-116); ANION GAP 12 (8-16); ASPARTATE AMINO TRANSFERASE 17 U/L (10-37); BILIRUBIN,TOTAL 0.7 MG/DL (0.1-1.0); BLOOD UREA NITROGEN 15 MG/DL (7-18); BUN/CREATININE RATIO 15.8 (5.4-32.0); CALCIUM 8.8 MG/DL (8.5-10.1); CHLORIDE 108 MMOL/L (99-107); CREATININE 0.95 MG/DL (0.60-1.10); GLUCOSE 187 MG/DL (70-104); POTASSIUM 3.6 MMOL/L (3.5-5.1); SODIUM 142 MMOL/L (135-145); TOTAL PROTEIN 7.2 G/DL (6.4-8.2); eGFR 77 ML/MIN
--- NOTE | 2021-11-21 17:05 | NUR ---
teleneuro set up for pt
[2021-11-21] MEDS ORDERED: acetaminophen 325mg tablet PO PRN (17:50)
[2021-11-21] MEDS ORDERED: potassium CL 10mEq/100ml bag 100 ML IV PRN (17:50)
[2021-11-21] MEDS ORDERED: ondansetron/PF 4mg/2ml inj IV PRN (17:50)
[2021-11-21] MEDS ORDERED: mag hydrox/Alum hydrox/simeth 30ml oral suspension PO PRN (17:50)
[2021-11-21] MEDS ORDERED: POTASSIUM BICARB 20meq eff tab 20 MEQ TABLET.EFF PO PRN ×2 (17:50)
[2021-11-21] MEDS ORDERED: magnesium hydroxide 30ml (MOM) UD suspension PO PRN (17:50)
[2021-11-21] MEDS ORDERED: magnesium 4gm in 100ml NS 100 ML IV PRN (17:50)
[2021-11-21] MEDS: normal saline 1000ml 1,000 ML IV SCH (17:50)
[2021-11-21] MEDS ORDERED: magnesium 2GM in 50ml NS 50 ML IV PRN (17:50)
[2021-11-21] MEDS ORDERED: magnesium Cl slow-release 64mg tablet PO PRN (17:50)
--- NOTE | 2021-11-21 18:01 | NUR ---
DR BAIG AT BEDSIDE TO EVALUATE PT
[2021-11-21] MEDS ORDERED: HYDR-3972 PO (18:10)
[2021-11-21 18:51] LABS: MAGNESIUM 2.1 MG/DL (1.5-2.4); POTASSIUM 3.3 MMOL/L (3.5-5.1)
[2021-11-21] MEDS: K and/or MAG REPLACEMENT MC SCH (19:03)
[2021-11-21] MEDS: docusate sod 100mg capsule PO SCH (19:04)
[2021-11-21] MEDS ORDERED: AMLO5TAB16 PO (19:14)
[2021-11-22 02:45] VITALS: BP 198/88
--- NOTE | 2021-11-22 02:45 | NUR ---
Patient arrived to floor via w/c from ER. A&O and in no pain. Patient voided in urinal with SbA and FWW and then got into bed. 2RN skin check performed and VS obtained.
[2021-11-22] MEDS: HYDROcodone/acetaminophen 5mg/325mg tablet PO PRN (03:27)
[2021-11-22] MEDS: normal saline 1000ml 1,000 ML IV SCH ×2 (03:52→13:50)
[2021-11-22 06:00] VITALS: BP 170/86
[2021-11-22 06:04] LABS: BASOPHILS # (AUTO) 0.1 X10'3 (0-0.2); BASOPHILS % (AUTO) 1.4 % (0-1); EOSINOPHILS # (AUTO) 0.5 X10'3 (0-0.9); HEMATOCRIT 40.2 % (42.0-52.0); HEMOGLOBIN 13.9 g/dl (14.0-17.9); LYMPHOCYTES # (AUTO) 1.3 X10'3 (1.1-4.8); LYMPHOCYTES % (AUTO) 22.4 % (21-51); MEAN CORPUSCULAR HEMOGLOBIN 31.5 PG (27.0-31.0); MEAN CORPUSCULAR HGB CONC 34.5 g/dL (33.0-36.5); MEAN CORPUSCULAR VOLUME 91.4 FL (78-98); MEAN PLATELET VOLUME 7.9 FL (7.4-10.4); MONOCYTES # (AUTO) 0.5 X10'3 (0-0.9); MONOCYTES % (AUTO) 8.4 % (2-12); NEUTROPHILS # (AUTO) 3.5 X10'3 (1.8-7.7); NEUTROPHILS % (AUTO) 58.8 % (42-75); PLATELET COUNT 269 X10'3 (140-440); RED CELL DISTRIBUTION WIDTH 13.7 % (11.5-14.5)
[2021-11-22 06:16] LABS: ALBUMIN 2.8 G/DL (3.4-5.0); ANION GAP 12 (8-16); BLOOD UREA NITROGEN 11 MG/DL (7-18); BUN/CREATININE RATIO 15.1 (5.4-32.0); CALCIUM 8.3 MG/DL (8.5-10.1); CHLORIDE 106 MMOL/L (99-107); CREATININE 0.73 MG/DL (0.60-1.10); GLUCOSE 140 MG/DL (70-104); MAGNESIUM 1.9 MG/DL (1.5-2.4); POTASSIUM 3.4 MMOL/L (3.5-5.1); SODIUM 142 MMOL/L (135-145); TOTAL CARBON DIOXIDE 24.3 MMOL/L (24-32); eGFR > 90 ML/MIN
--- NOTE | 2021-11-22 06:30 | NUR ---
Problems reprioritized. Patient report given, questions answered & plan of care reviewed with Ivy COLLADO.
--- NOTE | 2021-11-22 07:02 | NUR ---
Patient in room ORTHO 4021. I have received report from VALDEZ COLLADO and had the opportunity to ask questions and assume patient care.
[2021-11-22] MEDS: docusate sod 100mg capsule PO SCH ×2 (07:49→19:32)
[2021-11-22] MEDS: cholecalciferol (vitamin D3) 1,000 unit (25mcg) tablet PO SCH (07:50)
[2021-11-22] MEDS: atorvastatin 10mg tablet PO SCH (07:50)
[2021-11-22] MEDS: aspirin 81mg, enteric-coated 1 TAB TABLET.DR PO SCH (07:50)
[2021-11-22] MEDS: enoxaparin 40mg/0.4ml syringe SUBCUT SCH (07:52)
[2021-11-22] MEDS ORDERED: insulin glargine (Lantus) pen - multi-dose SQ SCH (08:00)
[2021-11-22] MEDS ORDERED: EMPAGLIFLOZIN 10 MG TABLET PO SCH (08:00)
[2021-11-22] MEDS: K and/or MAG REPLACEMENT MC SCH ×2 (08:00→19:22)
[2021-11-22 10:00] VITALS: BP 157/76
[2021-11-22 11:41] LABS: CHOL/HDL RATIO 6.9 (0.00-4.99); CHOLESTEROL 235 MG/DL (0-200); HDL CHOLESTEROL 34 MG/DL (35-60); LDL CHOLESTEROL 144 MG/DL (50-100); TRIGLYCERIDES 270 MG/DL (20-135)
[2021-11-22 14:01] VITALS: BP 124/73
[2021-11-22] MEDS ORDERED: MESSAGE TO PHARMACY PO ONE (16:40)
[2021-11-22] MEDS ORDERED: dextrose 50%-water 50ml dispensing syringe IV PRN ×2 (16:40)
[2021-11-22] MEDS ORDERED: DEXTROSE 15 GM of carb/4 tabs (each vial/BOTTLE has 4 tablets) PO PRN ×2 (16:40)
[2021-11-22] MEDS ORDERED: glucagon, human recombinant 1mg kit SUBCUT PRN (16:40)
[2021-11-22 18:00] VITALS: BP 168/84
--- NOTE | 2021-11-22 18:19 | NUR ---
patient observed to have right sided drift and weakness 0700, slurred speech also. Seen by [facility] speech pathologist, commenced on pureed diet tolerating well. 1200 neuro check patient had improved able to touch nose with right hand speech much clearer and able to rub right leg against opposite leg. Observed again at 1600hrs when patient is sleepy not able to follow commands for right side. But able to when appeared more awake. MRA and MRI of head today see report. VL carotids also done, results pending. Seen by Dr garza. Possible DC in am.
--- NOTE | 2021-11-22 18:46 | NUR ---
Problems reprioritized. Patient report given, questions answered & plan of care reviewed with prudence rn.
--- NOTE | 2021-11-22 19:13 | NUR ---
Patient in room ORTHO 4021. I have received report from FAIZAN COLLADO and had the opportunity to ask questions and assume patient care.
[2021-11-22] MEDS: insulin Lispro (HumaLOG) vial - multi-dose SQ SCH (19:32)
[2021-11-22] MEDS: insulin glargine (Lantus) pen - multi-dose SQ SCH ×2 (21:00→21:32)
[2021-11-22 22:00] VITALS: BP 162/71
[2021-11-23 02:31] VITALS: BP 179/90
--- NOTE | 2021-11-23 06:15 | NUR ---
Patient in room ORTHO 4021. I have received report from merary COLLADO and had the opportunity to ask questions and assume patient care.
[2021-11-23 06:30] LABS: BASOPHILS # (AUTO) 0.1 X10'3 (0-0.2); EOSINOPHILS # (AUTO) 0.5 X10'3 (0-0.9); HEMATOCRIT 44.4 % (42.0-52.0); HEMOGLOBIN 15.2 g/dl (14.0-17.9); LYMPHOCYTES # (AUTO) 1.3 X10'3 (1.1-4.8); MEAN CORPUSCULAR HEMOGLOBIN 31.6 PG (27.0-31.0); MEAN CORPUSCULAR HGB CONC 34.3 g/dL (33.0-36.5); MEAN CORPUSCULAR VOLUME 92.1 FL (78-98); MEAN PLATELET VOLUME 8.3 FL (7.4-10.4); MONOCYTES # (AUTO) 0.5 X10'3 (0-0.9); NEUTROPHILS # (AUTO) 3.7 X10'3 (1.8-7.7); PLATELET COUNT 274 X10'3 (140-440); RED BLOOD COUNT 4.82 X10'6 (4.70-6.10); RED CELL DISTRIBUTION WIDTH 13.8 % (11.5-14.5)
--- NOTE | 2021-11-23 06:47 | NUR ---
Problems reprioritized. Patient report given, questions answered & plan of care reviewed with FAIZAN COLLADO.
[2021-11-23 06:49] LABS: ALBUMIN 3.1 G/DL (3.4-5.0); ANION GAP 14 (8-16); BLOOD UREA NITROGEN 14 MG/DL (7-18); BUN/CREATININE RATIO 20.3 (5.4-32.0); CALCIUM 8.7 MG/DL (8.5-10.1); CHLORIDE 106 MMOL/L (99-107); CREATININE 0.69 MG/DL (0.60-1.10); GLUCOSE 127 MG/DL (70-104); POTASSIUM 3.7 MMOL/L (3.5-5.1); SODIUM 142 MMOL/L (135-145); TOTAL CARBON DIOXIDE 22.5 MMOL/L (24-32); eGFR > 90 ML/MIN
[2021-11-23 08:00] VITALS: BP 145/76
[2021-11-23] MEDS: docusate sod 100mg capsule PO SCH ×2 (08:00→19:41)
[2021-11-23] MEDS: enoxaparin 40mg/0.4ml syringe SUBCUT SCH (08:00)
[2021-11-23] MEDS: K and/or MAG REPLACEMENT MC SCH ×2 (08:00→19:42)
[2021-11-23] MEDS: atorvastatin 10mg tablet PO SCH (08:00)
[2021-11-23] MEDS: aspirin 81mg, enteric-coated 1 TAB TABLET.DR PO SCH (08:00)
[2021-11-23] MEDS: cholecalciferol (vitamin D3) 1,000 unit (25mcg) tablet PO SCH (08:00)
[2021-11-23 09:00] VITALS: BP 154/83
[2021-11-23] MEDS: insulin Lispro (HumaLOG) vial - multi-dose SQ SCH ×3 (09:39→19:38)
[2021-11-23] MEDS: normal saline 1000ml 1,000 ML IV SCH ×3 (09:50→19:40)
[2021-11-23] MEDS: clopidogrel 75mg tablet PO SCH (14:30)
[2021-11-23] MEDS ORDERED: clopidogrel 75mg tablet PO ONE (14:45)
[2021-11-23 15:00] VITALS: BP 139/73
[2021-11-23] MEDS: HYDROcodone/acetaminophen 5mg/325mg tablet PO PRN (16:48)
[2021-11-23 18:00] VITALS: BP 163/90
--- NOTE | 2021-11-23 18:47 | NUR ---
patient was observed to show alot more signs of right sided weakness during neuro checks. Unable even to life right arm or move right leg. Dr Waters notified and stroke nurse Taryn. Repeat CT ordered and neuro consult see results. repeat bed side swallow. patient ok to stay on pureed diet with aspiration precautions. . Patient placed on plavix . report given to Prudence RN
--- NOTE | 2021-11-23 18:53 | NUR ---
Patient in room ORTHO 4021. I have received report from FAIZAN COLLADO and had the opportunity to ask questions and assume patient care.
[2021-11-23] MEDS: insulin glargine (Lantus) pen - multi-dose SQ SCH ×2 (21:00→22:10)
[2021-11-23 22:00] VITALS: BP 180/81
[2021-11-24 02:00] VITALS: BP 164/80
[2021-11-24] MEDS: normal saline 1000ml 1,000 ML IV SCH (04:27)
--- NOTE | 2021-11-24 06:00 | NUR ---
Patient in room ORTHO 4021. I have received report from Genet COLLADO and had the opportunity to ask questions and assume patient care.
--- NOTE | 2021-11-24 06:19 | NUR ---
Problems reprioritized. Patient report given, questions answered & plan of care reviewed with FAIZAN COLLADO.
--- NOTE | 2021-11-24 06:48 | NUR ---
Patient in room ORTHO 4021. I have received report from NAYANA COLLADO and had the opportunity to ask questions and assume patient care.
[2021-11-24 07:03] VITALS: BP 197/84
[2021-11-24] MEDS ORDERED: atorvastatin 20mg tablet PO SCH (08:00)
[2021-11-24] MEDS: K and/or MAG REPLACEMENT MC SCH (08:00)
[2021-11-24] MEDS: enoxaparin 40mg/0.4ml syringe SUBCUT SCH (08:08)
[2021-11-24] MEDS: cholecalciferol (vitamin D3) 1,000 unit (25mcg) tablet PO SCH (08:09)
[2021-11-24] MEDS: clopidogrel 75mg tablet PO SCH (08:09)
[2021-11-24] MEDS: docusate sod 100mg capsule PO SCH (08:10)
[2021-11-24] MEDS: aspirin 81mg, enteric-coated 1 TAB TABLET.DR PO SCH (08:10)
[2021-11-24] MEDS: insulin Lispro (HumaLOG) vial - multi-dose SQ SCH ×2 (08:24→13:21)
[2021-11-24 08:31] LABS: ANION GAP 11 (8-16); BLOOD UREA NITROGEN 14 MG/DL (7-18); BUN/CREATININE RATIO 17.9 (5.4-32.0); CALCIUM 8.5 MG/DL (8.5-10.1); CHLORIDE 109 MMOL/L (99-107); CREATININE 0.78 MG/DL (0.60-1.10); GLUCOSE 114 MG/DL (70-104); MAGNESIUM 1.9 MG/DL (1.5-2.4); POTASSIUM 3.5 MMOL/L (3.5-5.1); SODIUM 142 MMOL/L (135-145); TOTAL CARBON DIOXIDE 22.3 MMOL/L (24-32); eGFR > 90 ML/MIN
[2021-11-24 08:40] LABS: BASOPHILS # (AUTO) 0.1 X10'3 (0-0.2); BASOPHILS % (AUTO) 1.2 % (0-1); EOSINOPHILS # (AUTO) 0.5 X10'3 (0-0.9); EOSINOPHILS % (AUTO) 8.8 % (0-6); HEMATOCRIT 45.1 % (42.0-52.0); HEMOGLOBIN 15.4 g/dl (14.0-17.9); LYMPHOCYTES # (AUTO) 1.4 X10'3 (1.1-4.8); LYMPHOCYTES % (AUTO) 24.8 % (21-51); MEAN CORPUSCULAR HEMOGLOBIN 31.3 PG (27.0-31.0); MEAN CORPUSCULAR VOLUME 92.1 FL (78-98); MONOCYTES # (AUTO) 0.5 X10'3 (0-0.9); MONOCYTES % (AUTO) 7.8 % (2-12); NEUTROPHILS # (AUTO) 3.3 X10'3 (1.8-7.7); NEUTROPHILS % (AUTO) 57.4 % (42-75); PLATELET COUNT 276 X10'3 (140-440); RED CELL DISTRIBUTION WIDTH 13.9 % (11.5-14.5); WHITE BLOOD COUNT 5.8 X10'3 (4.5-11.0)
[2021-11-24 10:00] VITALS: BP 182/96
--- NOTE | 2021-11-24 12:04 | NUR ---
patients B/P 182/96 and 197/84. Dr Jt dasilva.
--- NOTE | 2021-11-24 15:20 | NUR ---
Pt. in 4021B discontinued IV, gathered all belongings in pt. belongings bag for discharge. Placed in brief for transport.
--- NOTE | 2021-11-24 15:53 | NUR ---
patient DC to [place] via [facility] and [facility] personnel in stable condition. report called to Abbie.
== END 2021-11-24 15:30 | DRG 65 ==
LOC: ER 15:35 → ED HOLD 17:55 → ORTHO 4S 11-22 02:45
PROVIDERS: ADMIT Family Medicine; ATTEND Family Medicine
DX: I63.81 Other cerebral infarction due to occlusion or stenosis of small artery (principal); G81.91 Hemiplegia, unspecified affecting right dominant side; E78.00 Pure hypercholesterolemia, unspecified; R29.707 NIHSS score 7; I10 Essential (primary) hypertension; E87.6 Hypokalemia; Z20.822 Contact with and (suspected) exposure to COVID-19; E11.9 Type 2 diabetes mellitus without complications; K57.90 Diverticulosis of intestine, part unspecified, without perforation or abscess without bleeding; R47.1 Dysarthria and anarthria; Z90.49 Acquired absence of other specified parts of digestive tract; Z79.899 Other long term (current) drug therapy; Z79.4 Long term (current) use of insulin; Z79.82 Long term (current) use of aspirin
CPT/HCPCS: 36415; 70450; 70544; 70551; 71045; 80048; 80053; 80061; 82948; 83735; 84132; 85025; 85610; 85730; 87811; 92508; 92616; 93005; 93308; 93880; 97116; 97162; 97530; 99285; A4349; G0378; J1650; J1815; J7030